=== PATIENT | female | born 1955 | race African-American/Black ===

== ENCOUNTER 2016-09-18 16:45 | Outpatient (CLI) | payer MEDICARE, MEDICAID ==
[2016-09-18 20:24] LABS: ALT (SGPT) 12 U/L (0-55); AST (SGOT) 16 U/L (5-34); Alkaline Phosphatase 132 U/L (40-150); Anion Gap 15 mmol/L (10-20); BUN (Urea Nitrogen) 14 mg/dL (9.8-20.1); Bilirubin, Total 0.9 mg/dL (0.2-1.2); Calc. Creatinine Clearance 0 mL/min (70-130); Calcium 9.6 mg/dL (7.8-10.44); Carbon Dioxide 21 mmol/L (23-31); Chloride 108 mmol/L (98-107); Estimated GFR-MDRD 82; Globulin 2.8 g/dL (2.4-3.5); LDL Cholesterol, Calculated 57 mg/dL; Protein, Total 6.7 g/dL (5.8-8.1)
[2016-09-18 20:57] LABS: Hemoglobin A1c 9.7 % (4.0-6.0)
== END 2016-09-18 16:46 | disposition home or self-care (01) ==
LOC: NAV SJFMSP 16:45
PROVIDERS: ATTEND Family Medicine
DX: E11.59 Type 2 diabetes mellitus with other circulatory complications (principal)
CPT/HCPCS: 80053; 80061; 83036

== ENCOUNTER 2016-09-27 13:32 | Outpatient (CLI) | payer MEDICARE, OTHER ==
--- NOTE | 2016-09-27 15:44 | RAD ---
PA AND LATERAL CHEST: Date: 09-27-16 History: Chest pain and shortness of breath for two weeks. Comparison: 07-19-15 FINDINGS: Cardiac silhouette is at the upper limits of normal in size, but stable from the prior exam. Cardia c silhouette and pulmonary vasculature are within normal limits. Calcified granuloma at the right l conor base is again present. Lungs are otherwise clear. There has been no interval change from the p rior study. IMPRESSION: No acute cardiopulmonary process. POS: [facility]
== END 2016-09-27 13:33 | disposition home or self-care (01) ==
LOC: NAV RAD 13:32
PROVIDERS: ATTEND Internal Medicine Cardiovascular Disease
DX: R07.9 Chest pain, unspecified (principal)
CPT/HCPCS: 71020

== ENCOUNTER 2016-10-10 18:20 | Emergency (ER) | payer MEDICARE, OTHER ==
[~2016-10-10 18:20] MED LIST: Iopamidol 370 76% 100 ML VIAL ONE
[2016-10-10 19:12] LABS: #Basophils 0.1 thou/uL (0.0-0.2); #Eosinphils 0.1 thou/uL (0.0-0.7); #Lymphocytes 3.1 thou/uL (1.20-3.40); #Monocytes 0.6 thou/uL (0.11-0.59); #Neutrophils 2.6 thou/uL (1.40-6.50); %Eosinophils 1.2 % (0.0-10.0); %Lymphocytes 48.3 % (21.0-51.0); %Monocytes 8.6 % (0.0-10.0); Hematocrit 47.9 % (36.0-47.0); Mean Platelet Volume 9.8 fL (7.4-10.4); Red Blood Cell (RBC) Count 5.42 mill/uL (4.20-5.40); White Blood Cell (WBC) Count 6.5 thou/uL (4.8-10.8)
[2016-10-10 19:14] LABS: Bilirubin Negative (Negative); Blood, Urine Trace (Negative); Glucose, Urine (Dipstick) 100 mg/dL (Negative); Ketone, Urine Negative (Negative); Nitrite Negative (Negative); Protein, Urine (Dipstick) > or equal to 300 mg/dL (Neg-Trace)
[2016-10-10] MEDS ORDERED: Mag-Al Plus 1200 MG/1200 MG/120 MG/30 ML UDCUP ONE (19:20)
[2016-10-10] MEDS ORDERED: Lidocaine Viscous Sol 2% 15 ml UD Cup ONE (19:20)
[2016-10-10 19:26] LABS: Bacteria/HPF Rare-Few HPF (None Seen); RBC/HPF 0-3 HPF (0-3); Squamous Epithelial 0-3 HPF (0-3); WBC/HPF 0-3 HPF (0-3)
[2016-10-10 19:29] LABS: ALT (SGPT) 13 U/L (0-55); AST (SGOT) 16 U/L (5-34); Alkaline Phosphatase 126 U/L (40-150); Anion Gap 15 mmol/L (10-20); BUN (Urea Nitrogen) 10 mg/dL (9.8-20.1); Bilirubin, Total 0.6 mg/dL (0.2-1.2); Calc. Creatinine Clearance 0 mL/min (70-130); Calcium 9.6 mg/dL (7.8-10.44); Carbon Dioxide 23 mmol/L (23-31); Chloride 107 mmol/L (98-107); Estimated GFR-MDRD Greater than 90; Globulin 2.9 g/dL (2.4-3.5); Protein, Total 7.1 g/dL (5.8-8.1)
[2016-10-10 19:56] LABS: Troponin I Less than 0.010 ng/mL (< 0.028)
[2016-10-10] MEDS ORDERED: Sodium Chloride 0.9% 1,000 ML ONE (20:06)
[2016-10-10] MEDS ORDERED: HYDROcodone/Acetaminophen 10/325 mg Tablet ONE (20:49)
[2016-10-10] MEDS ORDERED: cloNIDine HCl 0.1 MG TAB ONE ×2 (20:50→21:23)
--- NOTE | 2016-10-10 21:35 | CT ---
CT ABDOMEN AND PELVIS WITH IV CONTRAST: 10/10/16 Multiple axial tomograms were obtained through the abdomen and pelvis with IV enhancement. Oral cont rast was not given. HISTORY: Epigastric pain and upper abdominal pain. Comparison made to CT abdomen and pelvis August 2015. The lung bases are clear. The liver, spleen, pancreas are unremarkable. The adrenal glands are unremarkable. Review of the kidneys shows no hydronephrosis. There are at least two or three tiny calcifications s een in the upper collecting structures of both kidneys. These measure in the 1 mm range and were pre sent on the prior exam and are unchanged in appearance. There is a 1.7 cm cyst posterior left renal cortex which is stable and there is another tiny low density lesion which is subcentimeter in the an terior left renal cortex which is probably a tiny cyst but is too small to characterize. This lesion is also stable. The stomach and duodenum appear unremarkable. No significant diaphragmatic hernia. A 1 cm focal calc ification seen adjacent to the distal esophagus at the EG junction presumably represents a calcified lymph node. This was present previously and is unchanged. Appendix appears normal. Stool throughout the colon. Images of the pelvis show evidence of hysterect nilda. There are iliac artery stents. Aorta is normal caliber with atherosclerotic changes noted. IMPRESSION: 1. Tiny nonobstructing calculi in the upper collecting structures of both kidneys which are sta ble from the prior exam. 2. Left renal cysts are stable. 3. No acute process. POS: [facility]
== END 2016-10-10 22:22 | disposition home or self-care (01) ==
LOC: NAV ERS 18:20
DX: R10.13 Epigastric pain (principal); R10.12 Left upper quadrant pain; I10 Essential (primary) hypertension; E78.5 Hyperlipidemia, unspecified; E11.9 Type 2 diabetes mellitus without complications; J45.909 Unspecified asthma, uncomplicated; I25.10 Atherosclerotic heart disease of native coronary artery without angina pectoris; F17.210 Nicotine dependence, cigarettes, uncomplicated; Z79.4 Long term (current) use of insulin; Z79.01 Long term (current) use of anticoagulants; Z79.82 Long term (current) use of aspirin; Z79.899 Other long term (current) drug therapy
CPT/HCPCS: 74177; 80053; 81003; 81015; 83690; 84484; 85025; 86140; 93005; 96360; J7050

== ENCOUNTER 2017-02-15 15:15 | Outpatient (CLI) | payer MEDICARE | END 2017-02-15 15:16 | disposition home or self-care (01) | LOC: NAV LAB 15:15 | PROVIDERS: ATTEND Family Medicine | DX: Z01.818 Encounter for other preprocedural examination (principal) ==

== ENCOUNTER 2017-02-15 15:34 | Outpatient (CLI) | payer MEDICARE, OTHER | END 2017-02-15 15:35 | disposition home or self-care (01) | LOC: NAV RAD 15:34 | PROVIDERS: ATTEND Family Medicine | DX: Z01.818 Encounter for other preprocedural examination (principal) | CPT/HCPCS: 71020 ==

== ENCOUNTER 2017-02-16 10:44 | Outpatient (CLI) | payer MEDICARE, OTHER ==
[2017-02-16 11:51] LABS: #Basophils 0.1 thou/uL (0.0-0.2); #Eosinphils 0.1 thou/uL (0.0-0.7); #Lymphocytes 2.6 thou/uL (1.20-3.40); #Monocytes 0.5 thou/uL (0.11-0.59); #Neutrophils 2.7 thou/uL (1.40-6.50); %Basophils 1.6 % (0.0-1.0); %Eosinophils 1.6 % (0.0-10.0); %Lymphocytes 43.3 % (21.0-51.0); %Monocytes 8.3 % (0.0-10.0); %Neutrophils 45.2 % (42.0-75.0); Hemoglobin 14.6 g/dL (12.0-16.0); Mean Corpuscular HGB CONC 31.4 g/dL (32.0-36.0); Mean Corpuscular Hemoglobin 27.1 pg (27.0-31.0); Mean Corpuscular Volume 86.2 fl (81.0-99.0); Mean Platelet Volume 9.2 fL (7.4-10.4); Platelet Count 258 thou/uL (130-400); RBC Distribution Width 12.4 % (11.5-14.5); Red Blood Cell (RBC) Count 5.38 mill/uL (4.20-5.40)
[2017-02-16 11:56] LABS: PTT 31.1 SEC (22.9-36.1); Prothrombin Time 13.6 SEC (12.0-14.7)
[2017-02-16 12:04] LABS: ALT (SGPT) 12 U/L (8-55); AST (SGOT) 14 U/L (5-34); Albumin 4.1 g/dL (3.4-4.8); Alkaline Phosphatase 137 U/L (40-150); Anion Gap 14 mmol/L (10-20); BUN (Urea Nitrogen) 7 mg/dL (9.8-20.1); Bilirubin, Total 0.7 mg/dL (0.2-1.2); Calc. Creatinine Clearance 0 mL/min (70-130); Calcium 9.7 mg/dL (7.8-10.44); Carbon Dioxide 23 mmol/L (23-31); Chloride 105 mmol/L (98-107); Estimated GFR-MDRD Greater than 90; Globulin 2.9 g/dL (2.4-3.5); Glucose 285 mg/dL (80-115); Potassium 4.1 mmol/L (3.5-5.1); Sodium 138 mmol/L (136-145)
== END 2017-02-16 10:45 | disposition home or self-care (01) ==
LOC: NAV LAB 10:44
PROVIDERS: ATTEND Family Medicine
DX: Z01.818 Encounter for other preprocedural examination (principal); E11.59 Type 2 diabetes mellitus with other circulatory complications; I25.10 Atherosclerotic heart disease of native coronary artery without angina pectoris
CPT/HCPCS: 80053; 84443; 85025; 85610; 85730

== ENCOUNTER 2017-05-08 13:05 | Outpatient (CLI) | payer MEDICARE, OTHER ==
--- NOTE | 2017-05-08 14:56 | RAD ---
CERVCIAL SPINE THREE VIEWS: Comparison: 01-31-17 History: Status post neck surgery. FINDINGS: No prevertebral soft tissue swelling. Stable degenerative change with loss of disc space height and osteophyte formation at C4-5 and C5-6. Interval placement of anterior fusion plate with transvertebr al body screw at C6 and C7. Disc prosthesis is identified. No perihardware lucency. In the AP projection, degenerative change of the posterior elements. Odontoid process is intact. IMPRESSION: Uncomplicated cervical fusion. POS: [facility]
== END 2017-05-08 13:06 | disposition home or self-care (01) ==
LOC: NAV RAD 13:05
PROVIDERS: ATTEND Neurological Surgery
DX: M54.12 Radiculopathy, cervical region (principal); M54.2 Cervicalgia; Z98.1 Arthrodesis status
CPT/HCPCS: 72040

== ENCOUNTER 2018-08-19 16:22 | Emergency (ER) | payer MEDICARE, MEDICAID ==
[2018-08-19] MEDS ORDERED: Ondansetron PF 4 MG/2 ML Vial ONE (17:32)
[2018-08-19] MEDS ORDERED: Morphine 4 MG/ML VIAL ONE (17:32)
[2018-08-19 17:35] LABS: #Basophils 0.1 thou/uL (0.0-0.2); #Eosinphils 0.1 thou/uL (0.0-0.7); #Monocytes 0.9 thou/uL (0.11-0.59); #Neutrophils 3.6 thou/uL (1.40-6.50); %Basophils 0.8 % (0.0-1.0); %Eosinophils 1.1 % (0.0-10.0); %Lymphocytes 39.4 % (21.0-51.0); %Monocytes 11.6 % (0.0-10.0); %Neutrophils 47.1 % (42.0-75.0); Mean Corpuscular HGB CONC 31.5 g/dL (32.0-36.0); Mean Corpuscular Hemoglobin 27.6 pg (27.0-31.0); Mean Corpuscular Volume 87.4 fL (78.0-98.0); Mean Platelet Volume 9.3 fL (7.4-10.4); Platelet Count 289 thou/uL (130-400); RBC Distribution Width 12.9 % (11.5-14.5); Red Blood Cell (RBC) Count 5.09 mill/uL (4.20-5.40); White Blood Cell (WBC) Count 7.7 thou/uL (4.8-10.8)
[2018-08-19 17:39] LABS: Bilirubin Negative (Negative); Blood, Urine Negative (Negative); Glucose, Urine (Dipstick) >=1000 mg/dL (Negative); Leukocyte Negative (Negative); Nitrite Negative (Negative); Protein, Urine (Dipstick) Trace mg/dL (Neg-Trace); Specific Gravity, Urine 1.015 (1.005-1.030)
[2018-08-19 17:41] LABS: Clarity SL HAZY (Clear)
[2018-08-19 17:45] LABS: Lactic Acid 0.7 mmol/L (0.5-2.2)
[2018-08-19 17:53] LABS: ALT (SGPT) 11 U/L (8-55); AST (SGOT) 13 U/L (5-34); Albumin 3.9 g/dL (3.4-4.8); Alkaline Phosphatase 93 U/L (40-150); Anion Gap 14 mmol/L (10-20); BUN (Urea Nitrogen) 16 mg/dL (9.8-20.1); Bilirubin, Total 0.8 mg/dL (0.2-1.2); Calc. Creatinine Clearance 0 mL/min (70-130); Calcium 10.1 mg/dL (7.8-10.44); Carbon Dioxide 23 mmol/L (23-31); Chloride 105 mmol/L (98-107); Estimated GFR-MDRD Greater than 90; Globulin 3.4 g/dL (2.4-3.5); Glucose 61 mg/dL (80-115); Lipase 19 U/L (8-78); Potassium 3.3 mmol/L (3.5-5.1); Protein, Total 7.3 g/dL (6.0-8.3); Sodium 139 mmol/L (136-145)
--- NOTE | 2018-08-19 18:02 | RAD ---
CHEST TWO VIEWS: HISTORY: Axillary pain and right chest pain. Cold last week with lots of coughing. COMPARISON: 07/12/2017 FINDINGS: Two views of the chest show normal sized cardiomediastinal silhouette. There is no evidence of consol idation, mass, or pleural effusion. The bones are unremarkable. IMPRESSION: No evidence of acute cardiopulmonary disease. POS: [facility]
[2018-08-19] MEDS ORDERED: Potassium Chloride 20 MEQ TAB ONE (18:17)
--- NOTE | 2018-08-19 18:39 | CT ---
CT ABDOMEN AND PELVIS WITH CONTRAST: HISTORY: Right upper quadrant and right-sided abdominal pain that is worse with coughing. COMPARISON: 10/10/2016 TECHNIQUE: Multiple contiguous axial images were obtained in a CT of the abdomen and pelvis with contrast. Francy nal reformats were performed. FINDINGS: A single, stable, 1.7 cm cyst is seen in the left kidney. The right kidney, liver, gallbladder, adre nal glands, spleen, and pancreas are unremarkable. No free air, free fluid, or stranding changes are seen in the abdomen or pelvis. The patient is status post hysterectomy. The large and small bowel are unremarkable. The appendix i s unremarkable. Dense atherosclerotic calcifications are seen in the aorta and iliac vessels. No abdominal or pelvic lymphadenopathy is seen. Degenerative changes are seen in the spine. A calcified granuloma is seen in the right lung base. T he abdominal wall soft tissues are unremarkable. IMPRESSION: 1. No evidence of acute intraabdominal/pelvic abnormality. 2. Left renal cyst. 3. Atherosclerotic disease. POS: [facility]
== END 2018-08-19 20:33 | disposition short-term general hospital (02) ==
LOC: NAV ERS 16:22
DX: R07.9 Chest pain, unspecified (principal); R10.811 Right upper quadrant abdominal tenderness; I25.10 Atherosclerotic heart disease of native coronary artery without angina pectoris; J45.909 Unspecified asthma, uncomplicated; E11.9 Type 2 diabetes mellitus without complications; E78.5 Hyperlipidemia, unspecified; I10 Essential (primary) hypertension; F17.210 Nicotine dependence, cigarettes, uncomplicated; Z79.899 Other long term (current) drug therapy; Z79.82 Long term (current) use of aspirin; Z79.4 Long term (current) use of insulin
CPT/HCPCS: 36416; 71046; 74177; 80053; 81003; 83605; 83690; 84484; 85025; 93005; 94760; 96374; 96375; J2270; J2405

== ENCOUNTER 2019-06-26 17:40 | Emergency (ER) | payer MEDICARE, OTHER ==
[2019-06-26 18:00] LABS: #Basophils 0.1 thou/uL (0.0-0.2); #Lymphocytes 2.5 thou/uL (1.20-3.40); #Monocytes 0.6 thou/uL (0.11-0.59); #Neutrophils 4.1 thou/uL (1.40-6.50); %Basophils 1.3 % (0.0-1.0); %Eosinophils 0.7 % (0.0-10.0); %Lymphocytes 34.3 % (21.0-51.0); %Monocytes 7.9 % (0.0-10.0); %Neutrophils 55.9 % (42.0-75.0); Hemoglobin 13.6 g/dL (12.0-16.0); Mean Corpuscular Hemoglobin 27.7 pg (27.0-31.0); Mean Corpuscular Volume 86.5 fL (78.0-98.0); Mean Platelet Volume 9.7 fL (7.4-10.4); Platelet Count 289 thou/uL (130-400); RBC Distribution Width 13.9 % (11.5-14.5); Red Blood Cell (RBC) Count 4.91 mill/uL (4.20-5.40); White Blood Cell (WBC) Count 7.3 thou/uL (4.8-10.8)
[2019-06-26 18:06] LABS: INR-International Normal Ratio 1.1; PTT 32.9 SEC (22.9-36.1); Prothrombin Time 13.9 SEC (12.0-14.7)
--- NOTE | 2019-06-26 18:08 | CT ---
CT OF BRAIN PERFORMED WITHOUT CONTRAST ENHANCEMENT: 06/26/19 HISTORY: Stroke symptoms with right facial droop. Ventricular and cisternal system is within normal limits. There is no signs of intracerebral hemorrh age or extra-axial fluid collections. Mild decreased attenuation of periventricular white matter sugg estive of chronic white matter change. Mastoid air cells and visualized sinuses are clear. IMPRESSION: 1. No acute intracranial abnormalities. 2. Findings telephoned to Dr. Osorio at 1801 hours. POS: [facility]
[2019-06-26 18:13] LABS: ALT (SGPT) 16 U/L (8-55); AST (SGOT) 17 U/L (5-34); Albumin 4.2 g/dL (3.4-4.8); Alkaline Phosphatase 106 U/L (40-110); Anion Gap 14 mmol/L (10-20); BUN (Urea Nitrogen) 8 mg/dL (9.8-20.1); Bilirubin, Total 0.8 mg/dL (0.2-1.2); Calc. Creatinine Clearance 0 mL/min (70-130); Calcium 9.7 mg/dL (7.8-10.44); Carbon Dioxide 21 mmol/L (23-31); Chloride 109 mmol/L (98-107); Estimated GFR-MDRD Greater than 90; Globulin 2.7 g/dL (2.4-3.5); Glucose 158 mg/dL (80-115); Potassium 3.8 mmol/L (3.5-5.1); Protein, Total 6.9 g/dL (6.0-8.3); Sodium 140 mmol/L (136-145)
[2019-06-26] MEDS ORDERED: Aspirin Chewable 81 MG TAB ONE (18:29)
[2019-06-26] MEDS ORDERED: Metoprolol Tartrate 5 MG/5 ML VIAL ONE (18:29)
[2019-06-26 19:00] LABS: Bilirubin Negative (Negative); Blood, Urine Trace (Negative); Clarity Clear (Clear); Glucose, Urine (Dipstick) 500 mg/dL (Negative); Leukocyte Negative (Negative); Nitrite Negative (Negative); Protein, Urine (Dipstick) Negative (Neg-Trace)
--- NOTE | 2019-06-26 19:06 | CT ---
CT ANGIOGTRAM OF HEAD AND NECK PERFORMED WITH INTRAVENOUS CONTRAST ENHANCEMENT WITH 3D RECONSTRUCTIO N: 06/26/19 HISTORY: Right sided facial droop. The lung apices are clear. Thyroid gland is enlarged with small bilateral thyroid nodules. No signifi cant jugular chain adenopathy. Parapharyngeal spaces are clear. Parotid and submandibular gland regio ns appear unremarkable. Angiographic portion of the study shows a separate origin of the left common carotid artery from the aortic arch. There is some mild plaque formation of the origin of the right innominate and left commo n carotid artery and more pronounced changes involving the origin of the left subclavian. The vertebr al arteries are codominant. The right common carotid artery is normal in caliber. There is some mild narrowing of the origin of t he right external carotid artery. No significant stenosis of the internal carotid artery by NASCET cr iteria. There is fairly prominent plaque formation at the origin of the left internal carotid artery but no s ignificant narrowing. Mild stenosis of the origin of the left external carotid. CT ANGIO OF HEAD PERFORMED WITH INTRAVENOUS CONTRAST ENHANCEMENT WITH 3D RECONSTRUCTIONS: The anterior and middle cerebral arteries and their branches are unremarkable. No signs of any intral uminal thrombus or any significant narrowing. The vertebrobasilar system appears unremarkable. IMPRESSION: 1. No evidence of any significant stenosis of either internal carotid artery by NASCET criteria. 2. No intracranial abnormalities. 3. Thyroid nodules. 4. Findings telephoned to Dr. Osorio at 1828 hours. POS: [facility]
[2019-06-26 19:09] LABS: Bacteria/HPF None Seen HPF (None Seen); RBC/HPF 0-3 HPF (0-3); Squamous Epithelial 0-3 HPF (0-3); WBC/HPF None Seen HPF (0-3)
== END 2019-06-26 18:53 | disposition short-term general hospital (02) ==
LOC: NAV ERS 17:40
DX: I10 Essential (primary) hypertension (principal); I25.10 Atherosclerotic heart disease of native coronary artery without angina pectoris; J45.909 Unspecified asthma, uncomplicated; E11.9 Type 2 diabetes mellitus without complications; E78.5 Hyperlipidemia, unspecified; F17.210 Nicotine dependence, cigarettes, uncomplicated; Z79.899 Other long term (current) drug therapy; Z79.82 Long term (current) use of aspirin; Z79.4 Long term (current) use of insulin; Z79.01 Long term (current) use of anticoagulants
CPT/HCPCS: 36415; 36416; 70450; 70498; 80053; 81003; 81015; 84484; 85025; 85610; 85730; 93005; 96374; Q9967

== ENCOUNTER 2020-09-14 08:55 | Outpatient (CLI) | payer MEDICARE ==
[2020-09-14] MEDS ORDERED: Iopamidol 370 76% 100 ML VIAL ONE (09:00)
--- NOTE | 2020-09-14 09:56 | CT ---
CT abdomen and pelvis with IV and oral contrast HISTORY: Left-sided abdomen pain. COMPARISON: 08/19/2018. FINDINGS: Lung bases are clear. Small amount of oral contrast is apparent within the distal esophagus . Calcified lymph nodes near the GE junction likely related to healed granulomatous disease. The gallbl adder and uterus are surgically absent. Within each kidney, there are 2 calcifications within nondilated calyces, measuring up to 0.2 cm diam eter. A 1.5 cm partially exophytic cyst projects posteriorly from the left kidney. No evidence of bowel obstruction or inflammation. No free fluid. Urinary bladder is unremarkable. Degenerative changes throughout the lumbar spine. Calcification throughout the arterial structures. Bilateral common iliac artery stents in place. IMPRESSION : Tiny nonobstructing bilateral renal calculi. Gastroesophageal reflux.
== END 2020-09-14 08:56 | disposition home or self-care (01) ==
LOC: NAV CT 08:55
PROVIDERS: ATTEND Family Medicine
DX: R10.9 Unspecified abdominal pain (principal); N20.0 Calculus of kidney; K21.9 Gastro-esophageal reflux disease without esophagitis
CPT/HCPCS: 74177; Q9967

== ENCOUNTER 2023-02-12 02:26 | Emergency (ER) | payer OTHER ==
[2023-02-12] MEDS ORDERED: Sodium Chloride 0.9% 100 ML ONE (03:08)
[2023-02-12] MEDS ORDERED: cefTRIAXone (ROCEPHIN) 2 GM VIAL ONE (03:08)
[2023-02-12 03:10] LABS: #Basophils 0.1 thou/uL (0.0-0.2); #Eosinphils 0.2 thou/uL (0.0-0.7); #Lymphocytes 2.8 thou/uL (1.20-3.40); #Monocytes 0.5 thou/uL (0.11-0.59); #Neutrophils 2.3 thou/uL (1.40-6.50); %Basophils 1.7 % (0.0-1.0); %Eosinophils 3.1 % (0.0-10.0); %Lymphocytes 47.4 % (21.0-51.0); %Monocytes 8.4 % (0.0-10.0); %Neutrophils 39.5 % (42.0-75.0); Hemoglobin 13.4 g/dL (12.0-16.0); Mean Corpuscular HGB CONC 31.8 g/dL (32.0-36.0); Mean Corpuscular Hemoglobin 27.3 pg (27.0-31.0); Mean Platelet Volume 8.3 fL (7.4-10.4); Platelet Count 266 10x3/uL (130-400); RBC Distribution Width 14.1 % (11.5-14.5); White Blood Cell (WBC) Count 5.9 10x3/uL (4.8-10.8)
[2023-02-12 03:24] LABS: ALT (SGPT) 25 U/L (8-55); AST (SGOT) 37 U/L (5-34); Albumin 3.7 g/dL (3.4-4.8); Alkaline Phosphatase 126 U/L (40-110); Anion Gap 15 mmol/L (10-20); BUN (Urea Nitrogen) 15 mg/dL (9.8-20.1); Bilirubin, Total 0.3 mg/dL (0.2-1.2); Calc. Creatinine Clearance 0 mL/min (70-130); Calcium 9.7 mg/dL (7.8-10.44); Carbon Dioxide 22 mmol/L (23-31); Chloride 108 mmol/L (98-107); Estimated GFR 71; Globulin 3.4 g/dL (2.4-3.5); Glucose 198 mg/dL (80-115); Magnesium 1.8 mg/dL (1.6-2.6); Potassium 3.6 mmol/L (3.5-5.1); Protein, Total 7.1 g/dL (5.8-8.1); Sodium 141 mmol/L (136-145)
[2023-02-12 03:33] LABS: Bilirubin Negative (Negative); Blood, Urine Trace (Negative); Clarity Clear (Clear); Glucose, Urine (Dipstick) 100 mg/dL (Negative); Ketone, Urine Negative (Negative); Leukocyte Negative (Negative); Nitrite Negative (Negative); Protein, Urine (Dipstick) > or equal to 300 mg/dL (Neg-Trace); Urobilinogen 0.2 mg/dL (Less than 2)
[2023-02-12 03:43] LABS: CKMB 3.1 ng/mL (0-6.6)
[2023-02-12] MEDS ORDERED: Furosemide 20 MG/2 ML VIAL ONE (03:47)
[2023-02-12 06:26] LABS: Troponin I 0.051 ng/mL (< 0.028)
[2023-02-12] MEDS ORDERED: Amlodipine 5 MG TAB ONE (07:44)
[2023-02-12] MEDS ORDERED: Clopidogrel Bisulfate 75 MG TAB ONE (07:44)
[2023-02-12] MEDS ORDERED: Aspirin Chewable 81 MG TAB ONE ×2 (07:44→07:48)
[2023-02-12] MEDS ORDERED: Furosemide 40 MG TAB ONE (07:44)
[2023-02-12] MEDS ORDERED: Lisinopril 20 MG TAB ONE (07:44)
[2023-02-12] MEDS ORDERED: Potassium Chloride 20 MEQ TAB ONE (07:44)
[2023-02-12] MEDS ORDERED: Heparin 5,000 UNITS/ML VIAL ONE (07:58)
[2023-02-12] MEDS ORDERED: Fenofibrate Nanocrystallized 145 MG TAB PO SCH (09:00)
[2023-02-12] MEDS ORDERED: HumaLOG 300 UNITS/3 ML VIAL SC SCH (09:00)
[2023-02-12] MEDS ORDERED: Empagliflozin 10 MG TAB PO SCH (09:00)
[2023-02-12] MEDS ORDERED: Ezetimibe 10 MG TAB PO SCH (09:00)
[2023-02-12] MEDS ORDERED: metFORMIN 500 MG TAB PO SCH (09:00)
== END 2023-02-12 09:20 | disposition short-term general hospital (02) ==
LOC: NAV ERS 02:26
DX: I11.0 Hypertensive heart disease with heart failure (principal); I50.9 Heart failure, unspecified; I21.4 Non-ST elevation (NSTEMI) myocardial infarction; E11.9 Type 2 diabetes mellitus without complications; E78.5 Hyperlipidemia, unspecified; F17.210 Nicotine dependence, cigarettes, uncomplicated; Z79.899 Other long term (current) drug therapy; Z79.4 Long term (current) use of insulin; Z79.84 Long term (current) use of oral hypoglycemic drugs
CPT/HCPCS: 36415; 36416; 71045; 80053; 81001; 82553; 83605; 83735; 83880; 84484; 85025; 87040; 87086; 93005; 96365; 96375; J0696; J1644; J1815; J1940; J3490

== ENCOUNTER 2024-11-08 01:40 | Emergency (ER) | payer OTHER ==
[2024-11-08] MEDS ORDERED: Midazolam HCl 2 mg/2 ml Vial ONE ×3 (02:16→03:27)
[2024-11-08] MEDS ORDERED: Nitroglycerin 2% Ointment 1 INCH/1 GM Packet ONE (02:20)
[2024-11-08 02:23] LABS: ALT (SGPT) 70 U/L (Less than 34); AST (SGOT) 110 U/L (11-34); Albumin 3.4 g/dL (3.1-4.5); Alkaline Phosphatase 147 U/L (40-110); Anion Gap 18 mmol/L (10-20); BUN (Urea Nitrogen) 17 mg/dL (9.8-20.1); Bilirubin, Total 0.6 mg/dL (0.3-1.2); Calc. Creatinine Clearance 0 mL/min (70-130); Calcium 9.1 mg/dL (7.8-10.44); Carbon Dioxide 19 mmol/L (23-31); Chloride 110 mmol/L (98-107); Estimated GFR 59; Globulin 3.5 g/dL (2.4-3.5); Glucose 370 mg/dL (80-115); Potassium 3.6 mmol/L (3.5-5.1); Protein, Total 6.9 g/dL (5.8-8.1); Sodium 143 mmol/L (136-145)
[2024-11-08 02:24] LABS: Critical Call Chem Troponin I 0222@NEFTI; Troponin I 0.337 ng/mL (< 0.028)
[2024-11-08 02:25] LABS: Acetaminophen Less than 10 mcg/mL (Less than 10); Alcohol Less than 10.0 mg/dL (Less than 10); Salicylate Less than 8.0 mg/dL (Less than 8.0)
[2024-11-08 02:39] LABS: Hematocrit 45.2 % (36.0-47.0); Hemoglobin 14.6 g/dL (12.0-16.0); Mean Corpuscular HGB CONC 32.4 g/dL (32.0-36.0); Mean Corpuscular Hemoglobin 28.8 pg (27.0-31.0); Mean Corpuscular Volume 88.8 fl (78.0-98.0); Platelet Count 423 10x3/uL (130-400); RBC Distribution Width 13.8 % (11.5-14.5); Red Blood Cell (RBC) Count 5.09 mill/uL (4.20-5.40); White Blood Cell (WBC) Count 13.2 10x3/uL (4.8-10.8)
[2024-11-08] MEDS ORDERED: hydrALAZINE 20 MG/ML VIAL ONE (02:40)
[2024-11-08] MEDS ORDERED: fentaNYL 50 mcg/mL 1 mL Vial ONE ×2 (02:40→03:33)
[2024-11-08 02:42] LABS: Mean Platelet Volume 7.8 fL (7.4-10.4)
[2024-11-08 02:49] LABS: Eosinophils 1 % (0-10); Lymphocytes 55 % (21-51); Monocytes 8 % (0-10); Neutrophil 35 % (42-75); Platelet Adequacy Comment Appears Increased
[2024-11-08 02:49] LABS: INR-International Normal Ratio 1.2; Prothrombin Time 15.2 sec (12.0-14.7)
[2024-11-08 02:50] LABS: PTT 33.5 sec (22.9-36.1)
[2024-11-08 02:51] LABS: MDiff Complete? YES; Manual Diff?? YES
[2024-11-08] MEDS ORDERED: Aspirin 300 MG Suppository ONE (02:58)
[2024-11-08 04:07] LABS: Amphetamine Not Detected (NotDetected); Barbiturates Screen Not Detected (NotDetected); Benzodiazepine Screen Not Detected (NotDetected); Cocaine Metabolite Screen Not Detected (NotDetected); Methadone Not Detected (NotDetected); Methamphetamine Not Detected (NotDetected); Opiate Screen Not Detected (NotDetected); Oxycodone Screen Not Detected (NotDetected); Phencyclidine (PCP) Not Detected (NotDetected); THC/Cannabinoid Screen Not Detected (NotDetected); Tricyclic Screen Not Detected (NotDetected)
== END 2024-11-08 03:53 | disposition short-term general hospital (02) ==
LOC: NAV ERS 01:40
DX: J96.00 Acute respiratory failure, unspecified whether with hypoxia or hypercapnia (principal); J44.9 Chronic obstructive pulmonary disease, unspecified; I11.0 Hypertensive heart disease with heart failure; I50.9 Heart failure, unspecified; I25.10 Atherosclerotic heart disease of native coronary artery without angina pectoris; I25.2 Old myocardial infarction; Z86.73 Personal history of transient ischemic attack (TIA), and cerebral infarction without residual deficits
CPT/HCPCS: 31500; 51702; 70450; 71045; 80053; 80306; 80307; 83880; 84484; 85025; 85610; 85730; 94760; 96374; 96375; 96376; 99292; J0360; J2250; J3010